=== PATIENT | female | born 1940 | race Caucasian/White ===

== ENCOUNTER → 2017-01-11 | Outpatient (CLI) | payer MEDICARE, OTHER ==
[~2017-01-11] MED LIST: ALPR0.254 PO; ASPI325T32 PO; ATOR10TA66 PO; BLOO-224 MC; FAMO20TA5 PO; HYDR12.5 PO; LEVO50TA6 PO; METF500T4 PO; METO-333 PO; OXYC5TAB71; POTA10TA10 PO
[2017-01-11 12:34] LABS: ABG BASE EXCESS -1.2 MMOL/L (-2.5-2.5); ABG HCO3 23 MMOL/L (23-27); ABG OXYGEN SATURATION 99 % (94-100); ABG PCO2 35 MMHG (35-45); ABG PH 7.42 (7.37-7.43); ABG PO2 102 MMHG (79-93); ABG TCO2 23.7 MMOL/L (21.0-31.0); ALLENS TEST POSITIVE
[2017-01-11 12:35] LABS: PATIENT TEMP 97.9
== END ==
LOC: RT 12:04
PROVIDERS: ATTEND Nurse Practitioner Family
DX: R06.00 Dyspnea, unspecified (principal)
CPT/HCPCS: 82805